=== PATIENT | male | born 1985 | race Caucasian/White ===

== ENCOUNTER 2024-05-05 00:05 | Emergency (ER) | payer BC ==
[~2024-05-05] VITALS: Ht 180.3 cm; Wt 104.6 kg
[2024-05-05 00:17] VITALS: O2SAT 98
[2024-05-05 01:06] LABS: CHLORIDE 105 mEq/L (98-107); POTASSIUM 4.2 mEq/L (3.5-5.1); SODIUM 140 mEq/L (136-145)
[2024-05-05 01:07] LABS: CALCIUM 9.7 mg/dL (8.7-10.4); CARBON DIOXIDE 29 mEq/L (21-32)
[2024-05-05 01:09] LABS: BASOPHILS % 0.3 % (0.0-2.0); EOSINOPHILS % 3.8 % (0.0-5.0); HEMATOCRIT. 42.7 % (42.0-52.0); HEMOGLOBIN. 14.9 g/dL (14.0-18.0); MEAN CORPUSCULAR HEMOGLOBIN 32.5 pg (28.0-32.0); MEAN CORPUSCULAR HGB CONC 34.9 g/dL (31.0-37.0); MEAN CORPUSCULAR VOLUME 93.1 fL (80.0-94.0); MEAN PLATELET VOLUME 8.3 fl (7.4-10.4); MONOCYTES % 6.6 % (2.0-8.0); NEUTROPHILS % 61.3 % (40.0-76.0); PLATELET 230 x1000/uL (130-400); RED BLOOD CELL COUNT 4.59 mill/uL (4.7-6.1); RED CELL DISTRIBUTION WIDTH 13.4 % (11.6-14.6); WHITE BLOOD COUNT 10.2 x1000/uL (4.5-11.0)
[2024-05-05 01:12] LABS: CREATININE 0.8 mg/dL (0.6-1.3); GLUCOSE 223 mg/dL (70-105); UREA NITROGEN BLOOD 13 mg/dL (9-23)
[2024-05-05 01:21] LABS: TROPONIN I HIGH SENSITIVITY < 4 ng/L (3.0-53)
[2024-05-05] MEDS: FAMOTIDINE 20MG/2ML VIAL IV ONE (02:30)
[2024-05-05 03:33] LABS: TROPONIN I HIGH SENSITIVITY < 4 ng/L (3.0-53)
[2024-05-05 03:52] VITALS: BP 115/82; PULSE 104; RESP 18; TEMP 36.66960; O2SAT 98
[2024-05-05] MEDS: FAMOTIDINE 20MG/2ML VIAL IV NR (03:59)
[2024-05-05] MEDS: SODIUM CHLORIDE 0.9% 1,000 ML IV ONE (03:59)
== END 2024-05-05 05:00 | disposition home or self-care (01) ==
LOC: ER 00:57
DX: R07.9 Chest pain, unspecified (principal); J45.909 Unspecified asthma, uncomplicated; E11.9 Type 2 diabetes mellitus without complications; Z87.442 Personal history of urinary calculi
CPT/HCPCS: 99291; 96374; 96361; 80048; 83880; 85025; 85379; 84484; 36415; 71045; 93005; J3490; J7030